=== PATIENT | male | born 1980 | race Caucasian/White ===

== ENCOUNTER 2016-10-27 07:40 | Day surgery (SDC) | payer OTHER ==
[~2016-10-27] VITALS: Ht 185.4 cm; Wt 93.0 kg
--- NOTE | ~2016-10-27 | OP ---
PATIENT NAME: SEBASTIÁN BLUE MEDICAL RECORD: [id number] :82 LOCATION:D.OPS ADMISSION DATE: SURGEON: GABRIELLA SIMPSON MD DATE OF OPERATION: 10/27/2016 PREOPERATIVE DIAGNOSIS: Left anterior thigh foreign body. POSTOPERATIVE DIAGNOSIS: Left anterior thigh foreign body. PROCEDURE: 1. Excision of left anterior thigh foreign body. 2. Fluoroscopic interpretation. SURGEON: Gabriella Simpson MD REPORT OF PROCEDURE: Preoperatively, the C-arm device was used to image the patient's left thigh and buttock. We could see the foreign metallic body in the left mid medial thigh. This area was prepped and draped in sterile fashion. A longitudinal incision was made overlying the area and using C-arm guidance. We were able to dissect down through the subcutaneous tissues and we were able to extract this foreign body. There was metallic inconsistent with the patient's story of a portion of a paper clip. This was removed and sent off for pathology. The subcutaneous tissues were irrigated out and reapproximated with interrupted 3-0 Vicryl and the skin was closed with running subcutaneous 5-0 Monocryl. A 10 mL of 0.25% Marcaine with epinephrine was infused into the surrounding tissues and the wound was dressed appropriately. COMPLICATIONS: None. CONDITION: Stable. ANESTHESIA: General endotracheal and local. BLOOD LOSS: Minimal. TRANSINT:[id number] Voice Confirmation ID: [id number] DOCUMENT ID: [id number] GABRIELLA SIMPSON MD CC: [id number] DICTATION DATE: 10/27/16 1056 CHAIRMAN EMERITUS: 10/27/16 2239 [facility] [place] 10/27/[address] [address]
[2016-10-27] MEDS ORDERED: ULTRAM50 MG PO (08:17)
[2016-10-27 08:25] VITALS: BP 132/79; Ht 185.4 cm; Wt 93.0 kg
--- NOTE | 2016-10-27 15:35 | NUR ---
1215 IV DC WITH CATHER TIP INTACT
== END 2016-10-27 13:00 | disposition home or self-care (01) ==
LOC: D.OPS 07:40 → D.SDCHOLD 07:40 → D.OPS 09:15
DX: S79.922A Unspecified injury of left thigh, initial encounter (principal); Z18.11 Retained magnetic metal fragments; Z01.812 Encounter for preprocedural laboratory examination